=== PATIENT | male | born 1975 | race Two or more races ===

== ENCOUNTER 2018-06-15 09:31 | Outpatient (CLI) | payer OTHER | END 2018-06-15 09:44 | disposition home or self-care (01) | LOC: MRI 09:31 | DX: M25.561 Pain in right knee (principal) | CPT/HCPCS: 73721 ==

== ENCOUNTER 2019-07-12 10:00 | Outpatient (CLI) | payer OTHER | END 2019-07-12 17:00 | disposition home or self-care (01) | LOC: MRI 10:00 | DX: M25.562 Pain in left knee (principal) | CPT/HCPCS: 73721 ==

== ENCOUNTER 2025-04-04 08:54 | Outpatient (CLI) | payer OTHER | END 2025-04-04 08:58 | disposition home or self-care (01) | LOC: TOM 08:54 | PROVIDERS: ATTEND Internal Medicine | DX: R91.1 Solitary pulmonary nodule (principal); B39.9 Histoplasmosis, unspecified; I10 Essential (primary) hypertension; E78.5 Hyperlipidemia, unspecified; M10.9 Gout, unspecified; E11.9 Type 2 diabetes mellitus without complications ==